=== PATIENT | male | born 1945 | race Caucasian/White ===

== ENCOUNTER 2016-10-02 11:35 | Day surgery (SDC) | payer MEDICARE, OTHER ==
[2016-10-02 12:00] VITALS: RESP 20; TEMP 97.9
[2016-10-02] MEDS ORDERED: TRIAMCINOLONE ACETONIDE 40 MG/ML SUS ONE (12:30)
[2016-10-02 13:16] VITALS: BP 143/61; PULSE 81; O2SAT 97
== END 2016-10-02 13:18 | disposition home or self-care (01) | DRG 552 ==
LOC: SURG 11:35
PROVIDERS: ATTEND Nurse Anesthetist, Certified Registered
DX: M51.16 Intervertebral disc disorders with radiculopathy, lumbar region (principal)
CPT/HCPCS: J3300

== ENCOUNTER 2017-03-19 10:21 | Day surgery (SDC) | payer MEDICARE, OTHER ==
[2017-03-19 10:47] VITALS: RESP 16
[2017-03-19] MEDS: TRIAMCINOLONE ACETONIDE 40 MG/ML SUS ONE ×2 (11:05→11:09)
[2017-03-19 11:29] VITALS: BP 115/61; PULSE 84; TEMP 98.2; O2SAT 98
== END 2017-03-19 11:47 | disposition home or self-care (01) | DRG 552 ==
LOC: SURG 10:21
PROVIDERS: ATTEND Nurse Anesthetist, Certified Registered
DX: M48.06 Spinal stenosis, lumbar region (principal); M48.07 Spinal stenosis, lumbosacral region
CPT/HCPCS: J3300

== ENCOUNTER 2017-09-23 07:23 | Day surgery (SDC) | payer MEDICARE, OTHER ==
[~2017-09-23 07:23] MED LIST: LIDOCAINE HCL 1% MPF SOL ONE; PROPOFOL 500 MG/50 ML EMU IV ONE
[2017-09-23] MEDS ORDERED: PROPOFOL 10 MG/ML EMU IV ONE (09:21)
[2017-09-23 09:37] VITALS: RESP 16
[2017-09-23 10:08] VITALS: BP 136/82; PULSE 83; TEMP 96.9; O2SAT 97
== END 2017-09-23 10:25 | disposition home or self-care (01) | DRG 951 ==
LOC: SURG 07:23
PROVIDERS: ATTEND Surgery
DX: Z12.11 Encounter for screening for malignant neoplasm of colon (principal); K31.5 Obstruction of duodenum; D12.3 Benign neoplasm of transverse colon; D50.9 Iron deficiency anemia, unspecified; K57.30 Diverticulosis of large intestine without perforation or abscess without bleeding; L53.8 Other specified erythematous conditions
CPT/HCPCS: J2001; J2704

== ENCOUNTER 2017-10-23 13:52 | Day surgery (SDC) | payer MEDICARE, OTHER ==
[2017-10-23 14:23] VITALS: TEMP 98.7
[2017-10-23] MEDS ORDERED: DEXAMETHASONE SOD PHOS PF 10 MG/ML SOL IJ ONE (14:37)
[2017-10-23] MEDS ORDERED: BUPIVACAINE HCL 0.25% MPF 10 ML SOL INFIL ONE (14:37)
[2017-10-23 14:55] VITALS: BP 124/65; PULSE 88; RESP 16; O2SAT 96
== END 2017-10-23 15:22 | disposition home or self-care (01) | DRG 552 ==
LOC: SURG 13:52
PROVIDERS: ATTEND Nurse Anesthetist, Certified Registered
DX: M48.062 Spinal stenosis, lumbar region with neurogenic claudication (principal)
CPT/HCPCS: J1100

== ENCOUNTER 2017-12-11 09:26 | Day surgery (SDC) | payer MEDICARE, OTHER ==
[~2017-12-11 09:26] MED LIST changes: +LIDOCAINE HCL 1% MPF 30 SOL ONE; -LIDOCAINE HCL 1% MPF SOL ONE
[2017-12-11 11:07] VITALS: RESP 16
[2017-12-11 11:23] VITALS: BP 113/64; PULSE 80; TEMP 97.4; O2SAT 98
== END 2017-12-11 11:50 | disposition home or self-care (01) | DRG 384 ==
LOC: SURG 09:26
PROVIDERS: ATTEND Surgery
DX: K26.9 Duodenal ulcer, unspecified as acute or chronic, without hemorrhage or perforation (principal); K31.5 Obstruction of duodenum
CPT/HCPCS: J2001; J2704

== ENCOUNTER 2018-02-12 10:43 | Day surgery (SDC) | payer MEDICARE, OTHER ==
[2018-02-12] MEDS ORDERED: BUPIVACAINE HCL 0.5% MPF 10 ML SOL ONE (11:21)
[2018-02-12] MEDS ORDERED: DEXAMETHASONE SOD PHOS PF 10 MG/ML SOL IJ ONE (11:21)
[2018-02-12 11:53] VITALS: BP 137/105; PULSE 86; RESP 20; TEMP 97.8; O2SAT 98
== END 2018-02-12 12:17 | disposition home or self-care (01) | DRG 552 ==
LOC: SURG 10:43
PROVIDERS: ATTEND Nurse Anesthetist, Certified Registered
DX: M48.062 Spinal stenosis, lumbar region with neurogenic claudication (principal)
CPT/HCPCS: J1100

== ENCOUNTER 2018-07-29 08:45 | Day surgery (SDC) | payer MEDICARE, OTHER ==
[2018-07-29 09:08] VITALS: RESP 20
[2018-07-29] MEDS ORDERED: BUPIVACAINE HCL 0.25% MPF 30 ML SOL INFIL ONE (09:19)
[2018-07-29] MEDS: DEXAMETHASONE SOD PHOS PF 10 MG/ML SOL IJ ONE ×3 (09:24→09:30)
[2018-07-29 09:42] VITALS: BP 144/91; PULSE 82; TEMP 97.9; O2SAT 100
== END 2018-07-29 09:57 | disposition home or self-care (01) | DRG 552 ==
LOC: SURG 08:45
PROVIDERS: ATTEND Nurse Anesthetist, Certified Registered
DX: M48.062 Spinal stenosis, lumbar region with neurogenic claudication (principal)
CPT/HCPCS: J1100

== ENCOUNTER 2019-02-10 11:07 | Day surgery (SDC) | payer MEDICARE, OTHER ==
[2019-02-10] MEDS ORDERED: DEXAMETHASONE SOD PHOS PF 10 MG/ML SOL IJ ONE (11:54)
[2019-02-10] MEDS ORDERED: BUPIVACAINE HCL 0.25% MPF 30 ML SOL INFIL ONE (11:54)
[2019-02-10 12:21] VITALS: BP 117/64; PULSE 78; RESP 20; TEMP 97.4; O2SAT 95
== END 2019-02-10 12:44 | disposition home or self-care (01) | DRG 552 ==
LOC: SURG 11:07
PROVIDERS: ATTEND Nurse Anesthetist, Certified Registered
DX: M48.062 Spinal stenosis, lumbar region with neurogenic claudication (principal)
CPT/HCPCS: J1100